=== PATIENT | female | born 1990 | race Caucasian/White ===

== ENCOUNTER 2023-03-08 18:15 | Outpatient (REF) | payer MEDICAID, SELFPAY | END 2023-03-08 18:16 | disposition home or self-care (01) | LOC: HO.HHCLNP 18:15 | PROVIDERS: Visit Provider Internal Medicine | DX: R30.0 Dysuria (principal) | CPT/HCPCS: 87086; 87088; 87186 ==

== ENCOUNTER 2024-06-06 11:44 | Outpatient (REF) | payer MEDICAID, SELFPAY ==
[2024-06-07 04:11] LABS: Syphilis Screen Nonreactive (Nonreactive)
[2024-06-07 04:21] LABS: HBS Num1 14.16 mIU/mL (0-7.99); HBc Num1 0.08 S/CO (0.00-0.79); HIV AB/AG Nonreactive (Nonreactive); HIV Num 1 0.04 S/CO (0.00-0.99); Hepatitis B Core Antibody Nonreactive (Nonreactive); Hepatitis B Surface Antigen Negative (Negative); ~HepC Num1 0.12 S/CO (0.00-0.79); ~Hepatitis B Surface Antibody REACTIVE (Nonreactive); ~Hepatitis C Antibody Nonreactive (Nonreactive)
[2024-06-07 09:39] LABS: HPV 16,18/45 See PAP report
[2024-06-10 19:18] LABS: C. Trachomatis RNA TMA, Throat NOT DETECTED; N. gonorrhoeae RNA TMA, Throat NOT DETECTED
[2024-06-16 23:23] LABS: C. trachomatis RNA TMA Detected (Not Detected); N. gonorrhoeae RNA TMA Not Detected (Not Detected); Trichomonas (NAAT) Not Detected (Not Detected)
== END 2024-06-06 11:45 | disposition home or self-care (01) ==
LOC: HO.HHCL 11:44
PROVIDERS: Visit Provider Advanced Practice Midwife
DX: Z11.3 Encounter for screening for infections with a predominantly sexual mode of transmission (principal)
CPT/HCPCS: 36415; 86704; 86706; 86780; 86803; 87340; 87389; 87491; 87591; 87626; 87661; 88175

== ENCOUNTER 2025-01-31 02:00 | Emergency (ER) | payer MEDICAID, SELFPAY ==
[2025-01-31 02:13] VITALS: BP 134/82; PULSE 74; O2SAT 98; BMI 42.9
--- NOTE | 2025-01-31 02:15 | ED_ITS ---
HPI - Headache General Chief Complaint: General Medical Stated Complaint: HEADACHE/ABD PAIN Time Seen by Provider: 01/31/25 02:07 Source: patient Mode of arrival: ambulatory Limitations: no limitations History of Present Illness ED Provider: HPI Narrative: 34-year-old woman reports longstanding history of headaches since young age, it is bitemporal, usually uses anti-inflammatories or acetaminophen this time has not had improvement of her symptoms, no fevers or chills, no neck stiffness no weakness in upper or lower extremities. No rashes, here with a girlfriend, states she is not Related Data Allergies Allergy/AdvReac Type Severity Reaction Status Date / Time No Known Allergies Allergy Verified 01/31/25 02:18 Review of Systems Constitutional: Constitutional: Reports as per [facility] Social History Social History Smoked in Last 30 Days: Yes Substance Use Type: Marijuana Do you have a plan to hurt others: No Plan Patient : No Physical Exam Vital Signs: Vital Signs: Last Vital Signs Temp 97.2 F 01/31/25 02:19 Pulse 53 01/31/25 02:19 Resp 14 01/31/25 02:19 BP 107/55 L 01/31/25 02:19 Pulse Ox 100 01/31/25 02:19 O2 Del Method Room Air 01/31/25 02:19 BMI result Body Mass Index 42.9 Const: Other: * Gen: ?Appears in some discomfort * HEENT: PERRLA, * Neck: No meningismus * CV: RRR, no obvious murmurs appreciated * Resp: ?No wheezing rales rhonchi no stridor moving air well * MSK: FROM, strength 5/5 all extremities * Skin: Warm, dry, intact, * Neuro: ?Alert and oriented x3, moving upper and lower extremities symmetrically, no obvious facial asymmetry noted Medications Administered Discontinued Medications Generic Name Dose Route Start Last Admin Trade Name Freq PRN Reason Stop Dose Admin Diazepam 2 mg 01/31/25 02:13 01/31/25 02:26 Diazepam 2 Mg Tablet PO 01/31/25 02:14 2 mg ONCE ONE Administration Ketorolac Tromethamine 15 mg 01/31/25 02:13 01/31/25 02:27 Ketorolac Tromethamine 15 Mg/Ml Vial IM 01/31/25 02:14 15 mg ONCE ONE Administration Ondansetron HCl 4 mg 01/31/25 02:13 01/31/25 02:27 Ondansetron Odt 4 Mg Tab.Raphael MCDUFFIEU 01/31/25 02:14 4 mg ONCE ONE Administration Medical Decision Making Medical Decision Making [facility] Narrative: 2:19 AM 01/31/2025 (Dr. Erik Ochoa): Overall well-appearing patient, bitemporal headache, this is chronic recurrent issue, likely tension headache without any red flags to suspect subarachnoid hemorrhage such as sudden onset , no fevers or chills to suspect underlying infectious etiology such as encephalitis, no risk factors to suspect cavernous venous thrombosis such as patient is on control pills 3:26 AM 01/31/2025 (Dr. Erik Ochoa): Re-evaluated, feels better will discharge Differential Diagnosis Differential Diagnoses: The differential diagnosis associated with the presentation includes (Subarachnoid hemorrhage, cavernous venous thrombosis, acute angle closure glaucoma, temporal arteritis, meningitis, migraine headache, tension headache) Admission/Observation Consideration of admission/observation: Escalation of care including admission/observation considered Tests considered The following testing was considered but not selected: CT brain CBC Prescription Management I considered prescription management with: Pain Medication Discharge Plan Discharge Clinical Impression: Headache, tension type, episodic Patient Disposition: Home, Self-Care Additional Instructions: Stay well hydrated, avoid screen time, you can use ibuprofen 400 mg every 6 hours needed for headache, I recommend less smoking marijuana and trying adipose a tincture it will help you with this type of headache, otherwise follow up with the PCP, and make sure you have your vision checked to make sure you do not need glasses Print Language: [place] Islander
[2025-01-31 02:19] VITALS: BP 107/55; PULSE 53; RESP 14; TEMP 36.2; O2SAT 100
--- OUTSIDE RECORDS SUMMARY | 2025-01-31 03:42 | XMS_ITS | Encounter Summary ---
Author Organization [employer] Address [address] [facility] 7t [place] [address] Care Team Providers Care Metal Filer Name Role Phone Jessica Spears PRINTING ROLLER POLISHER Primary Care Provider [phone] Encounter Details Date Type Department Care Team (Late st Contact Info) Description 06/07/2024 Orders Only [facility] [address] [place], [place] [phone] Za Padilla, RN Social History Tobacco Use Types Packs/Day Years Used Date Smoking Tobacco: Every Day Cigarettes Alcohol Use Standard Drinks/Week Comments Never 0 (1 standard drink = 0.6 oz pur e alcohol) Depression Answer Date Recorded Patient Health Questionnaire-9 Score 0 10/04/2022 Housing Stability Answer Date Recorded What is your housing situation today? I do not have housing (Staying with others, in a hotel, in a care home, living outside on the street, on a beach, in a car, or in a park 02/26/[address] you li ve. Do you have problems with any of the following? Mold 02/26/2023 Food Insecurity Answer Date Recorded Within the past 12 months, y ou worried that your food would run out before you got money to buy more: Sometimes True 2022 Within the past 12 months,th e food you bought just didn't last and you didn't have enough money to get more: Sometimes True 03/08/2023 Transportation Answer Date Recorded In the past 12 months, has l ack of transportation kept you from medical appts, meetings, work or from getting things needed for daily living? No 03/08/2023 Utilities Answer Date Recorded In the past 12 months, has t he electric, gas, oil or water company threatened to shut off services in your home? No 03/08/2023 Depression Answer Date Recorded Patient Health Questionnaire-2 Score 0 10/04/2022 Comments No Sex and Gender Information Value Date Recorded Sex Assigned at Female 03/21/2022 10:19 AM EDT Legal Sex Female 10:19 AM EDT Gender Identity Female 03/21/2022 10:19 AM EDT Sexual Orientation Bisexual 03/21/2022 10 :19 AM EDT documented as of this encounter Plan of Treatment Upcoming Encounters Date Type Department Care Team (Late st Contact Info) Description 03/10/2025 10:45 AM EDT Office Visit [facility] [address] [place], [place] [phone] [facility] [address] [place] [address] documented as of this encounter Procedures Procedure Name Priority Date/Time Associated Diagnosis Comments CHLAMYDIA/N. GONORRHOEAE RNA, TMA, THROAT Routine 06/06/2024 11:26 AM EST documented in this encounter Results * Chlamydia/N. Gonorrhoeae RNA, TMA, Throat (06/06/2024 11:26 AM EST) C. Trachomatis RNA TMA, Throat NOT DETECTED [facility] N. gonorrhoeae RNA TMA, Throat NOT DETECTED [facility] Comment:REFERENCE RANGE: NOT DETECTEDMethodology: Helicopter Officer Mediated Amplification (TMA) to detect RNA.The analytical performance characteristics of this assayhave been determined by [employer]. The modificationshave not been cleared or approved by the FDA. This assay hasbeen validated pursuant to the CLIA regulations and is usedfor clinical purposes.For additional information, please refer tohttps://education.[employer]/faq/IAJ180(This link is being provided for informational/educationalpurposes only.)THIS TEST WAS PERFORMED AT:[employer] [id number] [place] [address]MAHYSSERGIO KAY MD,PHD,LIZZY 06/06/2024 11:2 6 AM EST 06/06/2024 4:18 PM EST us Saadia Mendosa CNM LAB MICROBIOLOGY - GENERA L ORDERABLES Final Result [facility] [address] [place] [phone] [phone] documented in this encounter Visit Diagnoses Not on filedocumented in this encounter Additional Health Concerns Assessment Noted Time PHQ-9 Depression Total Score: 0 10/05/19 23 3:44 PM EDT documented as of this encounter Care Teams Metal Filer Relationship Specialty Start Date End Date Jessica Spears FNP [address] [place] [phone] PCP - General Family Medicine 11/01/21 documented as of this encounter
--- OUTSIDE RECORDS SUMMARY | 2025-01-31 03:42 | XMS_ITS | Clinical Summary ---
Author Organization [employer] Address [address] [facility] 7t [place] [address] Care Team Providers Care Diploma Maker Name Role Phone Jessica Spears FIRER DIESEL LOCOMOTIVE Primary Care Provider [phone] Allergies No known active allergies Medications senna-docusate (Gina-Colace) 4.3-25 mg half tablet Take 1 tablet by mouth every 12 (twelve) hours. 6 Active nicotine (Nicoderm CQ) 7 MG/24HR patch Place 1 patch on the skin at bed time. 0 Active nicotine polacrilex (Nicorette) 2 MG gum Take by mouth every 2 (two) hours. 0 Active nitrofurantoin, macrocrystal-mo nohydrate, (Macrobid) 100 MG capsule Take 1 capsule by mouth every 12 (twelve) hours. 0 Active omeprazole (PriLOSEC) [address] capsule take 1 capsule by oral route every day before breakfast 6 Active polyethylene glycol, PEG, 3350 (MiraLax) 17 GM/SCOOP powder take (17G) by oral route every day mixed with 8 oz. water, juice, soda, coffee or tea 6 Active rizatriptan (Maxalt) 5 MG tablet Take 1 tablet by mouth. 0 Active nicotine (Nicoderm CQ) 21 MG/24HR patch Place 1 patch on the skin at bed time. 0 Active nicotine (Nicoderm CQ) 14 MG/24HR patch Place 1 patch on the skin at bed time. 0 Active naproxen (Naprosyn) 500 MG tablet Take 1 tablet by mouth every 12 (twelve) hours. 0 Active metroNIDAZOLE (Flagyl) 500 MG tablet take 1 tablet by oral route every 12 hours for seven days 0 Active famotidine (Pepcid) 20 MG tablet take 1 tablet by oral route 2 times every day before meals 0 Active ciclopirox (Penlac) 8 % solution Apply topically at bed time. 0 Active cholecalciferol (Vitamin D-3) 50 MCG (1999) capsule Take 1 capsule by mouth Once per day. 6 Active doxycycline (Monodox) 100 MG capsule One twice a day for 7 days. Take with at least 8 ounces (large glass) of water, do not lie down for 30 minutes after 14 capsule 5 Active Active Problems Problem Noted Date Diagnosed Date Severe obesity 06/03/2024 Migraine without aura, not refractory 10/04/2022 Numbness and tingling in right hand 09/05/2022 Anxiety 07/20/2015 Slow transit constipation 07/20/2015 Immunizations Immunization Administration Dates Next Due DTP 09/18/1994, 2,1990,1990,1990 Hep B, Unspecified 07/10/1996,01/19/1996 HiB, unspecified 12/20/1991, 1,1990,1990 Influenza Injectable Quadriv alant Preservative Free IIV4 MDCK 02/21/2019 Influenza injectable quadriv alent preservative free 02/22/2017,07/20/2015 MMR 09/18/1994,09/19/1991 OPV, Trivalent 09/18/1994, 1,1990,1990 Tdap 03/09/2017,07/20/2015 Family History Medical History Relation Name Comments Cancer Maternal Grandmother unknown type Cancer Mother possibly uterin e or ovarian, had hyst Relation Name Status Comments Maternal Grandmother Mother Social History Tobacco Use Types Packs/Day Years Used Date Smoking Tobacco: Every Day Cigarettes Tobacco Cessation:Ready to Q uit: Not Asked; Counseling Given: Not Answered Alcohol Use Standard Drinks/Week Comments Never 0 (1 standard drink = 0.6 oz pur e alcohol) Depression Answer Date Recorded Patient Health Questionnaire-9 Score 0 10/04/2022 Housing Stability Answer Date Recorded What is your housing situation today? I do not have housing (Staying with others, in a hotel, in a prison, living outside on the street, on a [...] Orientation Bisexual 03/21/2022 10 :19 AM EDT Last Filed Vital Signs Vital Sign Reading Time Taken Comments Blood Pressure 124/62 06/06/2024 11:01 AM EST Pulse 67 06/06/2024 11:01 AM EST Temperature 36.6 C (97.8 F) 06/06/2024 11:01 AM EST Respiratory Rate 20 06/06/2024 11:0 1 AM EST Oxygen Saturation 98% 06/06/2024 11: 01 AM EST Inhaled Oxygen Concentration - - Weight 99.7 kg (219 lb 12.8 oz) 025 11:01 AM EST Height 154.9 cm (5' 1 ) 06/06/2024 11:0 1 AM EST Body Mass Index 41.53 06/06/2024 11:01 AM EST Plan of Treatment Upcoming Encounters Date Type Department Care Team (Late st Contact Info) Description 03/10/2025 10:45 AM EDT Office Visit [facility] [address] [place] [address] [place], Jessica, FIRER DIESEL LOCOMOTIVE [address] [place], [place] [phone] Health Maintenance Due Date Last Done Comments Lipid Panel 1990 Disability Screening 1990 Hepatitis B Vaccines (3 of 3 - 3-dose series) 09/04/1996 07/10/1996, 01/19/1996 Alcohol/Substance Use Screening 2002 HPV Vaccines (1 - 3-dose series) 2005 Pneumococcal Vaccine: Pediatrics (0 to 5 Years) and At-Risk Patients (6 to 49) Years (1 of 2 - PCV) 2009 Depression Screening 10/05/2023 10/04/2022, 10/05/19 23 SDOH Screening 10/26/2023 10/25/2022 COVID-19 Vaccine ( - season) 2025 Influenza Vaccine (#1) 2025 9, 02/22/2017, 07/20/2015, Additional history exists Family Planning (PISQ) 06/06/2025 06/06/2024 Tobacco Screening 06/06/2025 06/06/2024 DTaP/Tdap/Td Vaccines (8 - Td or Tdap) 03/09/2027 03/09/2017, 07/20/2015, 09/18/1994, Additional history exists Cervical Cancer Screening 06/06/2029 HPV/Cotest 06/06/2029 06/06/2024 Pap Smear 06/06/2029 06/06/2024 Zoster Vaccines (1 of 2) 2040 RSV Patients and Patients Aged 60 years or older (1 - 1-dose 75+ series) 2065 HIB Vaccines Completed 12/20/1991, 12/22, 1990, Additional history exists IPV Vaccines Completed 09/18/1994, 07/3 05/1990, 1990, Additional history exists HIV Screening Completed 06/06/2024 Hepatitis C Screening Completed 06/06/2024 Hepatitis A Vaccines Aged Out No long er eligible based on patient's age to complete this topic Meningococcal B Vaccine Aged Out No l onger eligible based on patient's age to complete this topic Meningococcal Vaccine Aged Out No joshua gregory eligible based on patient's age to complete this topic RSV under 20 months Aged Out No longe r eligible based on patient's age to complete this topic Rotavirus Vaccines Aged Out No longer eligible based on patient's age to complete this topic Procedures Procedure Name Priority Date/Time Associated Diagnosis Comments HEPATITIS C AB W/REFL TO HCV RNA, QN, PCR Routine 06/06/2024 11:46 AM EST Screening examination for venereal disease HIV 1/2 ANTIGEN/ANTIBODY, FOURTH GENERATION W/RFL Routine 06/06/2024 11:46 AM EST Screening examination for venereal disease PAP SMEAR Routine 06/06/2024 11:25 AM EST Cervical cancer screening HPV MRNA E6/E7 REFLEX TO HPV 16, 18/45 Routine 06/06/2024 12:00 AM EST from Last 3 Months or Most Recently Relevant to Health Maintenance Results * Hepatitis C Antibody with Reflex to HCV, RNA, Quantitative, Real-Time PCR (06/06/2024 11:46 AM EST) Hepatitis C Antibody Nonreactive Nonreactive [facility] Comment:Antibodies to HCV no t detected; does not exclude early acuteHCV infection. Blood Venous blood specimen / Unknown 06/06/2024 11:46 AM EST 06/06/2024 1:03 PM EST us Saadia Birmingham [facility] LAB BLOOD ORDERABLES Agnes l Result [facility] [address] [place] [address] [phone] * HIV-1/2 Antigen and Antibodies, Fourth Generation, with Reflexes (06/06/2024 11:46 AM EST) HIV AB/AG Nonreactive Nonreactive [facility] Comment:HIV-1 p24 Ag and/or HIV-1/HIV-2 Ab not detected.A test result that is nonreactive does not exclude thepossibility of exposure to or infection with HIV-1 and/orHIV-2. Nonreactive results in this assay for individualswith prior exposure to HIV-1 and/or HIV-2 may be due toantigen and antibody levels that are below the limit ofdetection of this assay.[employer] HIV Ag/Ab Combo assay result andsupplemental assay results should be interpreted inconjunction with the patient's clinical presentation,history and other laboratory results. If the results areinconsistent with clinical evidence, additional testing issuggested to confirm the result. Blood Venous blood specimen / Unknown 06/06/2024 11:46 AM EST 06/06/2024 1:03 PM EST us Saadia Birmingham [facility] BLOOD ORDERABLES Agnes l Result [facility] [address] [place] [phone] * Pap Smear (06/06/2024 11:25 AM EST) Swab Cervix uteri structure / Unknown 06/06/2024 11:25 AM EST 06/07/2024 8:45 AM EST Narrative [facility] - 06/14/2024 10:29 AM EST ----- ------- Name: Layla Hensley Age/Sex: 34/F : 1990 Unit#: [id number] Attend Dr: SAADIA BIRMINGHAM Re06/06/24 Status: DEP [facility]ch[facility] ----- ------- SPEC : [id number] RECD: 06/07/24 STATUS: MACKENZIE BERMAN NUM: [id number] JOURDAN: 06/06/24-112[address] [facility] [address]: SAADIA B[place]MINGHAM ENTERED: 06/07/24 SP TYPE: Pap Smr OTHR DR: ORDERED: Pap Smear Interpretation Satisfactory for evaluation. Negative for intraepithelial lesion or malignancy. No endocervical cells seen. Coccobacilli consistent with shift in vaginal kayla. HPV High Risk: Negative HPV Genotyping 16: Negative HPV Genotyping 18: Negative Clinical Information LMP: Unknown date Previous PAP test: Unknown date/findings Material Received ThinPrep-Cervical ----- ------- Signed (signature on file) CARTER Noriega (ASC) 06/14/24 1029 ----- ------- END OF REPORT Saadia Birmingham CNM LAB CYTOLOGY ORDERABLES F inal Result [facility] [address] [place] [phone] * HPV mRNA E6/E7 w/Reflex to HPV Genotypes 16, 18/45 (06/06/2024 12:00 AM EST) Historical Provider MD LAB CYTOLOGY ORDERABLES F inal Result from Last 3 Months or Most Recently Relevant to Health Maintenance Insurance [employer] C3 Care Teams Diploma Maker Relationship Specialty Start Date End Date Jessica Spears FNP [address] [place] [address] PCP - General Family Medicine 11/01/21
--- OUTSIDE RECORDS SUMMARY | 2025-01-31 03:42 | XMS_ITS | Encounter Summary ---
Author Organization [employer] Address [address] [facility] 7t [place] [address] Care Team Providers Care Yoker Name Role Phone Jessica Spears CHEMICAL LABORATORY TECHNICIAN Primary Care Provider [phone] Encounter Details Date Type Department Care Team (Late st Contact Info) Description 09/18/2024 Orders Only [facility] [address] [place], [place] [phone] Sydnie Sapp Social History Tobacco Use Types Packs/Day Years [...] Description 03/10/2025 10:45 AM EDT Office Visit [facility] [address] [place], [place] [phone] Jessica Spears FNP [address] [place] [address] documented as of this encounter Procedures Procedure Name Priority Date/Time Associated Diagnosis Comments HPV MRNA E6/E7 REFLEX TO HPV 16, 18/45 Routine 06/06/2024 12:00 AM EST documented in this encounter Results * HPV mRNA E6/E7 w/Reflex to HPV Genotypes 16, 18/45 (06/06/2024 12:00 AM EST) us Historical Provider LAB CYTOLOGY ORDERABLES F inal Result documented in this encounter Visit Diagnoses Not on filedocumented in this encounter Additional Health Concerns Assessment Noted Time PHQ-9 Depression Total Score: 0 10/05/19 23 3:44 PM EDT documented as of this encounter Care Teams Yoker Relationship Specialty Start Date End Date Jessica Spears FNP [address] [place] [address] PCP - General Family Medicine 11/01/21 documented as of this encounter
--- NOTE | 2025-01-31 03:51 | PC.NURSE ---
pt left ED prior to going over DC with RN. Discharge instructions given by provider
== END 2025-01-31 03:52 | disposition home or self-care (01) ==
PROVIDERS: Emergency Provider Emergency Medicine
DX: R51.9 Headache, unspecified (principal); R10.2 Pelvic and perineal pain
CPT/HCPCS: 96372; 99284; J1885

== ENCOUNTER 2025-02-13 21:00 | Emergency (ER) | payer SELFPAY ==
[2025-02-13 21:05] VITALS: BP 118/72; PULSE 78; O2SAT 98
[2025-02-13 21:08] VITALS: BP 97/49; PULSE 66; RESP 18; TEMP 36.7; O2SAT 98; BMI 37.8
--- OUTSIDE RECORDS SUMMARY | 2025-02-13 22:44 | XMS_ITS | Encounter Summary ---
Author Organization [employer] Address [address] [facility] 7t [place] [address] Care Team Providers Care Console Assembler Name Role Phone Jessica Spears NEWSPAPER PHOTO EDITOR Primary Care Provider [phone] Encounter Details Date Type Department Care Team (Late st Contact Info) Description 09/18/2024 Orders Only [facility] P[facility]S [address] [place], [place] [phone] Sydnie Sapp Social History Tobacco Use Types [...] with others, in a hotel, in a penitentiary, living outside on the street, on a [...] Description 03/10/2025 10:45 AM EDT Office Visit [facility] [address] [place], [place] [phone] Jessica Spears FNP [address] [place] [address] documented as of this encounter Procedures Procedure [...] documented as of this encounter Care Teams Console Assembler Relationship Specialty Start Date End Date Jessica Spears FNP [address] [place] [address] PCP - General Family Medicine 11/01/21 documented as of this encounter
--- OUTSIDE RECORDS SUMMARY | 2025-02-13 22:44 | XMS_ITS | Encounter Summary ---
Author Organization [employer] Address [address] [facility] [address] [place] [address] Care Team Providers Care Operator Name Role Phone Jessica Spears WELDER/FITTER Primary Care Provider [phone] Encounter Details Date Type Department Care Team (Late st Contact Info) Description 06/07/2024 Orders Only [facility] [address] [place], [place] [phone] Za Padilla, RN Social History Tobacco Use [...] Description 03/10/2025 10:45 AM EDT Office Visit [facility] [address] [place], [place] [phone] [facility], [facility] [address] [place] [address] documented as of this encounter Procedures Procedure Name Priority Date/Time Associated Diagnosis Comments CHLAMYDIA/N. GONORRHOEAE RNA, TMA, THROAT Routine 06/06/2024 11:26 AM EST documented in this encounter Results * Chlamydia/N. Gonorrhoeae RNA, TMA, Throat (06/06/2024 11:26 AM EST) C. Trachomatis RNA TMA, Throat NOT DETECTED [facility] N. gonorrhoeae RNA TMA, Throat NOT DETECTED [facility] Comment:REFERENCE RANGE: NOT DETECTEDMethodology: Balancing Machine Operator Mediated Amplification (TMA) to detect RNA.The analytical performance characteristics of this assayhave been determined by [employer]. The modificationshave not been cleared or approved by the FDA. This assay hasbeen validated pursuant to the CLIA regulations and is usedfor clinical purposes.For additional information, please refer tohttps://education.[employer]/faq/ZQQ413(This link is being provided for informational/educationalpurposes only.)THIS TEST WAS PERFORMED AT:[employer] [id number] [place] [address]MVDITSERGIO KAY MD,PHD,LIZZY 06/06/2024 11:2 6 AM EST 06/06/2024 4:18 PM EST us Saadia Mendosa CNM LAB MICROBIOLOGY - GENERA L ORDERABLES Final Result [facility] [address] [place] [phone] [phone] documented in this encounter Visit Diagnoses Not on filedocumented in this encounter Additional Health Concerns Assessment Noted Time PHQ-9 Depression Total Score: 0 10/05/19 23 3:44 PM EDT documented as of this encounter Care Teams Operator Relationship Specialty Start Date End Date Jessica Spears FNP [address] [place] [phone] PCP - General Family Medicine 11/01/21 documented as of this encounter
--- OUTSIDE RECORDS SUMMARY | 2025-02-13 22:44 | XMS_ITS | Clinical Summary ---
Author Organization [employer] Address [address] [facility] 7t [place] [address] Care Team Providers Care Mold Capper Name Role Phone Jessica Spears SKILLS INSTRUCTOR Primary Care Provider [phone] Allergies No known active allergies Medications senna-docusate [...] Description 03/10/2025 10:45 AM EDT Office Visit [facility] [address] [place] [address] [place], Jessica, SKILLS INSTRUCTOR [address] [place], [place] [phone] Health Maintenance Due Date Last Done Comments [...] AM EST) Hepatitis C Antibody Nonreactive Nonreactive [facility] Comment:Antibodies to HCV no t detected; does not exclude early acuteHCV infection. Blood Venous blood specimen / Unknown 06/06/2024 11:46 AM EST 06/06/2024 1:03 PM EST us Saadia Birmingham [facility] LAB BLOOD ORDERABLES Agnes l Result [facility] [address] [place] [address] [phone] * HIV-1/2 Antigen and Antibodies, Fourth Generation, with Reflexes (06/06/2024 11:46 AM EST) HIV AB/AG Nonreactive Nonreactive [facility] Comment:HIV-1 p24 Ag and/or HIV-1/HIV-2 Ab not detected.A test result that is nonreactive does not exclude thepossibility of exposure to or infection with HIV-1 and/orHIV-2. Nonreactive results in this assay for individualswith prior exposure to HIV-1 and/or HIV-2 may be due toantigen and antibody levels that are below the limit ofdetection of this assay.The [employer] HIV Ag/Ab Combo assay result andsupplemental assay results should be interpreted inconjunction with the patient's clinical presentation,history and other laboratory results. If the results areinconsistent with clinical evidence, additional testing issuggested to confirm the result. Blood Venous blood specimen / Unknown 06/06/2024 11:46 AM EST 06/06/2024 1:03 PM EST us Saadia Birmingham [facility] LAB BLOOD ORDERABLES Agnes l Result [facility] [address] [place] [phone] * Pap Smear (06/06/2024 11:25 AM EST) Swab Cervix uteri structure / Unknown 06/06/2024 11:25 AM EST 06/07/2024 8:45 AM EST Narrative [facility] - 06/14/2024 10:29 AM EST ----- ------- Name: Layla Hensley Age/Sex: 34/F : 1990 Unit#: [id number] Attend Dr: SAADIA BIRMINGHAM Re06/06/24 Status: DEP [facility] Disch: ----- ------- SPEC : [id number] RECD: 06/07/24 STATUS: MACKENZIE BERMAN NUM: [id number] JOURDAN: 06/06/24-[address] [facility] [address]: SAADIA BIRMINGHAM ENTERED: 06/07/24 [...] CNM LAB CYTOLOGY ORDERABLES F inal Result [facility] [address] [place] [address] [phone] * HPV mRNA E6/E7 w/Reflex to HPV Genotypes 16, 18/45 (06/06/2024 12:00 AM EST) Historical Provider MD LAB CYTOLOGY ORDERABLES F inal Result from Last 3 Months or Most Recently Relevant to Health Maintenance Insurance [employer] Care Teams Mold Capper Relationship Specialty Start Date End Date Jessica Spears FNP [address] [place] [address] PCP - General Family Medicine 11/01/21
--- NOTE | 2025-02-13 23:19 | ED_ITS ---
HPI - General Adult General Chief complaint: Dental/Oral Stated complaint: toothache, unable to eat difficultly speaking Time Seen by Provider: 02/13/25 23:19 Source: patient Mode of arrival: ambulatory Limitations: no limitations History of Present Illness ED Provider: Dr. Lofton [facility] narrative: 34-year-old female presented hospital today for right lower molar dental pain. Patient is complaining of pain. She does have appointment with the dentist tomorrow. She thinks it might be infected. Related Data Previous Rx's ?Medication ?Instructions ?Recorded oxycodone 5 mg tablet 5 mg PO Q8H PRN pain #14 tab s 02/13/25 penicillin V potassium 500 mg 500 mg PO TID 7 days #21 tabs 02/13/25 tablet Allergies Allergy/AdvReac Type Severity Reaction Status Date / Time No Known Allergies Allergy Verified 02/13/25 21:10 Review of Systems 2 Review of Systems: Pertinent review of systems as mentioned in HPI. All other system otherwise negative. PMFSH Past Medical History [facility] Narrative: Medical history as mentioned in [facility] Social History Social History Substance Use Type: Marijuana Advance Directives: No Advance Directives Information Provided: No Do you have a plan to hurt others: No Plan Physical Exam ED Exam Exam: General: Pleasant, no distress, interacting appropriately Head: Normacephalic, atraumatic ENT: oral mucosa moist, neck supple, no tracheal deviation, patient has some decayed teeth in the right lower molar. It was some swelling of the gingiva Skin: Warm and dry Psychiatric: Appropriate mood and thoughts Vital Signs: Vital Signs - 24 hr 02/13/25 21:08 02/13/25 23:32 Temperature 98.1 F 98.1 F Pulse Rate 66 66 Respiratory Rate 18 18 Blood Pressure 97/49 L 97/49 L Pulse Oximetry 98 98 Oxygen Delivery Method Room Air Room Air BMI result Body Mass Index 37.8 Medical Decision Making Medical Decision Making [facility] Narrative: 34-year-old female presented hospital presented hospital today for right lower molar dental pain. I suspect patient has dental infection. Patient does have a dentist appointment tomorrow. We will plan to discharge patient with a short course of oxycodone and Pen-VK for coverage. Patient will be discharged with follow up with her dentist. Differential Diagnosis Differential Diagnoses: The differential diagnosis associated with the presentation includes Dental abscess, tooth pain, toothache, gingivitis Discharge Plan Discharge Clinical Impression: Dental caries Patient Disposition: Home, Self-Care Additional Instructions: Follow up with your primary care doctor. Prescriptions: New oxycodone 5 mg tablet 5 mg PO Q8H PRN (Reason: pain) Qty: 14 0RF Rx Instructions: Partial Fill upon patient request. penicillin V potassium 500 mg tablet 500 mg PO TID 7 Days Qty: 21 0RF Interventions: ED Discharge Assessment Last Done: 02/13/25 23:32 Discharge Date/Time: 02/13/25 23:33 Print Language: Persian
[2025-02-13 23:32] VITALS: BP 97/49; PULSE 66; RESP 18; TEMP 36.7; O2SAT 98
== END 2025-02-13 23:33 | disposition home or self-care (01) ==
PROVIDERS: Emergency Provider Student in an Organized Health Care Education/Training Program
DX: K02.9 Dental caries, unspecified (principal); K08.89 Other specified disorders of teeth and supporting structures
CPT/HCPCS: 99282; 99283

== ENCOUNTER 2025-04-01 22:52 | Emergency (ER) | payer MEDICAID, SELFPAY ==
[2025-04-01 23:05] VITALS: BP 109/59; PULSE 79; RESP 16; TEMP 36.6; O2SAT 99; BMI 43.1
[2025-04-01 23:27] LABS: MANUAL DIFF FLAG NO
[2025-04-01 23:28] LABS: Hematocrit 36.1 % (37.0-47.0); Hemoglobin 11.9 g/dl (12.0-16.0); Imm Gran Abs Auto 0.03 X10*3/uL (0.00-0.03); Imm Gran Pct Auto 0.4 % (0.0-0.4); Lymphocytes Absolute Auto 2.9 X10*3/uL (1.2-4.9); Mean Corpuscular HGB Conc 33.0 g/dl (31.0-35.0); Mean Corpuscular Hemoglobin 29.2 pg (27.0-33.0); Mean Corpuscular Volume 88.7 fL (80.0-98.0); NRBC Abs Auto 0.000 X10*3/uL (0.0-0.012); NRBC Pct Auto 0.0 /100WBC (0.0-0.2); Platelet Count 256 X10*3/uL (160-400); Red Blood Count 4.07 X10*6/uL (4.20-5.50); White Blood Count 7.2 X10*3/uL (4.8-10.8)
[2025-04-01 23:31] LABS: UPreg QC Valid YES
--- OUTSIDE RECORDS SUMMARY | 2025-04-01 23:31 | XMS_ITS | Clinical Summary ---
Author Organization [employer] Address [address] [facility] 7t [place] [address] Care Team Providers Care Chiller Operator Name Role Phone [facility] Primary Care Provider [phone] Allergies No known active allergies Medications senna-docusate [...] Problem Noted Date Diagnosed Date Severe obesity (CMS/HCC) 06/03/2024 Migraine without aura, not refractory 10/04/2022 Numbness and tingling in right hand 09/05/2022 Anxiety 07/20/2015 Slow transit constipation 07/20/2015 Encounters Date Type Department Care Team Description 04/01/2025 Orders Only GENERIC EXTERNAL DATA DEPARTMENT Provider, Generic External Data 03/07/2025 Telephone [facility] [address] [place], [place] [phone] Jessica Spears FNP chart prep 03/03/2025 Patient Outreach [facility] [address] [place], [place] [phone] Jessica Spears FNP Pre-visit Planning ([facility] unable to reach ) from Last 3 Months Immunizations Immunization Administration Dates Next Due DTP 09/18/1994, 2,1990,1990,1990 Hep B, Unspecified 07/10/1996,01/19/1996 HiB, unspecified 12/20/1991, 1,1990,1990 Influenza Injectable Quadriv alant Preservative Free IIV4 MDCK 02/21/2019 Influenza injectable quadriv alent preservative free 02/22/2017,07/20/2015 Influenza, IIV3, injectable 02/01/2011 MMR 09/18/1994,09/19/1991 OPV, Trivalent 09/18/1994, 1,1990,1990 Tdap [...] with others, in a hotel, in a snf, living outside on the street, on a [...] t he electric, gas, oil or water [employer] threatened to shut off services in your [...] Care Team (Late st Contact Info) Description 04/28/2025 10:45 AM EST Office Visit [facility] [address] [place] [address] [facility] [address] [place], [place] [phone] Health Maintenance Due Date Last Done Comments [...] SDOH Screening 10/26/2023 10/25/2022 COVID-19 Vaccine ( season) 2025 Influenza Vaccine (#1) 2025 9, [...] Additional history exists IPV Vaccines Completed 09/18/1994, 11/21, 1990, Additional history exists HIV Screening Completed [...] Procedure Name Priority Date/Time Associated Diagnosis Comments CBC WITH AUTO DIFFERENTIAL Routine 04/01/2025 11:17 PM EST HEPATITIS C AB W/REFL TO HCV RNA, [...] Recently Relevant to Health Maintenance Results * (ABNORMAL) CBC auto differential (04/01/2025 11:17 PM EST) White Blood Count 7.2 4.8 - 10.8 X10*3/uL [facility] Red Blood Count 4.07(L) 4.20 - 5.50 X10*6/uL [facility] Hemoglobin 11.9(L) 12.0 - 16.0 g/dl [facility] Hematocrit 36.1(L) 37.0 - 47.0 % [facility] Mean Corpuscular Volume 88.7 80.0 - 98.0 fL [facility] Mean Corpuscular Hemoglobin 29.2 27.0 - 33.0 pg [facility] Mean Corpuscular HGB Conc 33.0 31.0 - 35.0 g/dl [facility] Red Cell Distribution Width 12.2 11.0 - 16.0 % [facility] Platelet Count 256 160 - 400 X10*3/uL [facility] Mean Platelet Volume 8.7(L) 9.4 - 12.3 fL [facility] Neutrophils Percent Auto 47.5 45 - 73 % [facility] Imm Gran Pct Auto 0.4 0.0 - 0.4 % [facility] Lymphocytes Percent Auto 39.9 20 - 40 % [facility] Monocytes Percent Auto 9.4 2 - 11 % [facility] Eosinophils Percent Auto 2.5 0 - 4 % [facility] Basophils Percent Auto 0.3 0 - 2 % [facility] NRBC Pct Auto 0.0 0.0 - 0.2 /100WBC [facility] Neutrophils Absolute Auto 3.4 2.0 - 8.3 x10*3/uL [facility] Imm Gran Abs Auto 0.03 0.00 - 0.03 X10*3/uL [facility] Lymphocytes Absolute Auto 2.9 1.2 - 4.9 X10*3/uL [facility] Monocytes Absolute Auto 0.7 0.1 - 1.2 X10*3/uL [facility] Eosinophils Absolute Auto 0.2 0.0 - 0.4 X10*3/uL [facility] Basophils Absolute Auto 0.0 0.0 - 0.2 X10*3/uL [facility] NRBC Abs Auto 0.000 0.0 - 0.012 X10*3/uL [facility] 04/01/2025 11:1 7 PM EST 04/01/2025 11:25 PM EST Generic External Data Provider LAB BLOOD ORDERAB LES Final Result Performing Organization Address [facility]/ZIP Co de Phone Number [facility] [address] [place] [address] [phone] * Hepatitis C Antibody with Reflex to HCV, RNA, Quantitative, Real-Time PCR (06/06/2024 11:46 AM EST) Hepatitis C Antibody Nonreactive Nonreactive [facility] Comment:Antibodies to HCV no t detected; does not exclude early acuteHCV infection. Blood Venous blood specimen / Unknown 06/06/2024 11:46 AM EST 06/06/2024 1:03 PM EST Saadia Birmingham [facility] LAB BLOOD ORDERABLES Agnes l Result Performing Organization Address [facility]/ZIP Co de Phone Number [facility] [address] [place] [address] [phone] * HIV-1/2 Antigen and Antibodies, Fourth Generation, with Reflexes (06/06/2024 11:46 AM EST) HIV AB/AG Nonreactive Nonreactive [facility] Comment:HIV-1 p24 Ag and/or HIV-1/HIV-2 Ab not detected.A test result that is nonreactive does not exclude thepossibility of exposure to or infection with HIV-1 and/orHIV-2. Nonreactive results in this assay for individualswith prior exposure to HIV-1 and/or HIV-2 may be due toantigen and antibody levels that are below the limit ofdetection of this assay.The [employer] HIV Ag/Ab Combo assay result andsupplemental assay results should be interpreted inconjunction with the patient's clinical presentation,history and other laboratory results. If the results areinconsistent with clinical evidence, additional testing issuggested to confirm the result. Blood Venous blood specimen / Unknown 06/06/2024 11:46 AM EST 06/06/2024 1:03 PM EST Saadia Birmingham CNM LAB BLOOD ORDERABLES Agnes gleason Result [facility] [address] [place] [phone] * Pap Smear (06/06/2024 11:25 AM EST) Swab Cervix uteri structure / Unknown 06/06/2024 11:25 AM EST 06/07/2024 8:45 AM EST Narrative [facility] - 06/14/2024 10:29 AM EST ----- ------- Name: Layla Hensley Age/Sex: 34/F : 1990 Unit#: [id number] Attend Dr: SAADIA BIRMINGHAM CNM Re06/06/24 Status: DEP REF Location: [facility] Disch: ----- ------- SPEC : [id number] RECD: 06/07/240845 STATUS: MACKENZIE BERMAN NUM: [id number] JOURDAN: 06/06/24-1125 [facility] DR: SAADIA BIRMINGHAM CNM ENTERED: 06/07/24 SP TYPE: Pap Smr DADA ROLLE: ORDERED: Pap Smear Interpretation Satisfactory for evaluation. Negative for intraepithelial lesion or malignancy. No endocervical cells seen. Coccobacilli consistent with shift in vaginal kayla. HPV High Risk: Negative HPV Genotyping 16: Negative HPV Genotyping 18: Negative Clinical Information LMP: Unknown date Previous PAP test: Unknown date/findings Material Received ThinPrep-Cervical ----- ------- Signed (signature on file) CARTER Noriega (ASCP) 06/14/24 1029 ----- ------- END OF REPORT Saadia Birmingham CNM LAB CYTOLOGY ORDERABLES F inal Result [facility] [address] [place] [phone] * HPV mRNA E6/E7 w/Reflex to HPV Genotypes 16, 18/45 (06/06/2024 12:00 AM EST) Historical Provider LAB CYTOLOGY ORDERABLES F inal Result from Last 3 Months or Most Recently Relevant to Health Maintenance Care Teams Chiller Operator Relationship Specialty Start Date End Date RichmondJessica parker FNP [address] [place] [phone] PCP - General Family Medicine 11/01/21
--- OUTSIDE RECORDS SUMMARY | 2025-04-01 23:31 | XMS_ITS | Encounter Summary ---
Author Organization [employer] Address [address] [facility] [address] 7t [place] [address] Care Team Providers Care Webmaster Name Role Phone [facility] Primary Care Provider [phone] Encounter Details Date Type Department Care Team (Late st Contact Info) Description 06/07/2024 Orders Only [facility] [address] [place] [address] Za Padilla RN Social History Tobacco Use Types Packs/Day [...] with others, in a hotel, in a jail, living outside on the street, on a [...] the past 12 months, has t he [employer], [employer], oil or water [employer] threatened to shut off services in your [...] Description 04/28/2025 10:45 AM EST Office Visit [facility] [address] [place], [place] [phone] [facility], [facility] [address] [place] [address] documented as of this encounter Procedures Procedure Name Priority Date/Time Associated Diagnosis Comments CHLAMYDIA/N. GONORRHOEAE RNA, TMA, THROAT Routine 06/06/2024 11:26 AM EST documented in this encounter Results * Chlamydia/N. Gonorrhoeae RNA, TMA, Throat (06/06/2024 11:26 AM EST) C. Trachomatis RNA TMA, Throat NOT DETECTED [facility] N. gonorrhoeae RNA TMA, Throat NOT DETECTED [facility] Comment:REFERENCE RANGE: NOT DETECTEDMethodology: Motor[employer] Mediated Amplification (TMA) to detect RNA.The analytical performance characteristics of this assayhave been determined by [employer]. The modificationshave not been cleared or approved by the FDA. This assay hasbeen validated pursuant to the CLIA regulations and is usedfor clinical purposes.For additional information, please refer tohttps://education.[employer]/faq/QRS238(This link is being provided for informational/educationalpurposes only.)THIS TEST WAS PERFORMED AT:[employer] [id number] [place] [id number] KAY MD,PHD,LIZZY 06/06/2024 11:2 6 AM EST 06/06/2024 4:18 PM EST us Saadia Mendosa CNM LAB MICROBIOLOGY - GENERA L ORDERABLES Final Result [facility] [address] [place] [phone] documented in this encounter Visit Diagnoses Not on filedocumented in this encounter Additional Health Concerns Assessment Noted Time PHQ-9 Depression Total Score: 0 10/05/19 23 3:44 PM EDT documented as of this encounter Care Teams Webmaster Relationship Specialty Start Date End Date Jessica Spears FNP [address] [place] [phone] PCP - General Family Medicine 11/01/21 documented as of this encounter
--- OUTSIDE RECORDS SUMMARY | 2025-04-01 23:31 | XMS_ITS | Encounter Summary ---
Author Organization [employer] Address [address] [facility] 7t [place] [address] Care Team Providers Care Concrete Fence Builder Name Role Phone [facility] Primary Care Provider [phone] Encounter Details Date Type Department Care Team (Late st Contact Info) Description 04/01/2025 Orders Only GENERIC EXTERNAL DATA DEPARTMENT Provider, Generic External Data Social History Tobacco Use Types Packs/Day Years [...] with others, in a hotel, in a correction, living outside on the street, on a [...] Description 04/28/2025 10:45 AM EST Office Visit [facility] [address] [place] [address] Jack[place], [place], [facility] [address] [place] [address] documented as of this encounter Procedures Procedure Name Priority Date/Time Associated Diagnosis Comments CBC WITH AUTO DIFFERENTIAL Routine 04/01/2025 11:17 PM EST documented in this encounter Results * (ABNORMAL) CBC auto differential (04/01/2025 11:17 PM EST) White Blood Count 7.2 4.8 - 10.8 X10*3/uL [facility] Red Blood Count 4.07(L) 4.20 - 5.50 X10*6/uL [facility] Hemoglobin 11.9(L) 12.0 - 16.0 g/dl [facility] Hematocrit 36.1(L) 37.0 - 47.0 % [facility] Mean Corpuscular Volume 88.7 80.0 - 98.0 fL [facility] Mean Corpuscular Hemoglobin 29.2 27.0 - 33.0 pg [facility] Mean Corpuscular HGB Conc 33.0 31.0 - 35.0 g/dl [facility] Red Cell Distribution Width 12.2 11.0 - 16.0 % [facility] Platelet Count 256 160 - 400 X10*3/uL [facility] Mean Platelet Volume 8.7(L) 9.4 - 12.3 fL [facility] Neutrophils Percent Auto 47.5 45 - 73 % [facility] Imm Gran Pct Auto 0.4 0.0 - 0.4 % [facility] Lymphocytes Percent Auto 39.9 20 - 40 % [facility] Monocytes Percent Auto 9.4 2 - 11 % [facility] Eosinophils Percent Auto 2.5 0 - 4 % [facility] Basophils Percent Auto 0.3 0 - 2 % [facility] NRBC Pct Auto 0.0 0.0 - 0.2 /100WBC [facility] Neutrophils Absolute Auto 3.4 2.0 - 8.3 x10*3/uL [facility] Imm Gran Abs Auto 0.03 0.00 - 0.03 X10*3/uL [facility] Lymphocytes Absolute Auto 2.9 1.2 - 4.9 X10*3/uL [facility] Monocytes Absolute Auto 0.7 0.1 - 1.2 X10*3/uL [facility] Eosinophils Absolute Auto 0.2 0.0 - 0.4 X10*3/uL [facility] Basophils Absolute Auto 0.0 0.0 - 0.2 X10*3/uL [facility] NRBC Abs Auto 0.000 0.0 - 0.012 X10*3/uL [facility] 04/01/2025 11:1 7 PM EST 04/01/2025 11:25 PM EST us Generic External Data Provider LAB BLOOD ORDERAB LES Final Result [facility] [address] [place] [phone] documented in this encounter Visit Diagnoses Not on filedocumented in this encounter Additional Health Concerns Assessment Noted Time PHQ-9 Depression Total Score: 0 10/05/19 23 3:44 PM EDT documented as of this encounter Care Teams Concrete Fence Builder Relationship Specialty Start Date End Date Jessica Spears FNP [address] [place] [phone] PCP - General Family Medicine 11/01/21 documented as of this encounter
--- OUTSIDE RECORDS SUMMARY | 2025-04-01 23:31 | XMS_ITS | Encounter Summary ---
Author Organization [employer] Address [address] [facility] [address] 7[address] [place] [address] Care Team Providers Care Construction Project Coordinator Name Role Phone Pierre Part, [place]OYMENT OFFICE CLERK Primary Care Provider [phone] Encounter Details Date Type Department Care Team (Late st Contact Info) Description 09/18/2024 Orders Only [facility] [address] [place], [place] [phone] Sydnie Sapp Social History Tobacco Use Types [...] with others, in a hotel, in a senior care, living outside on the street, on a [...] the past 12 months, has t he [employer], gas, oil or water [employer] threatened to shut off services in your [...] Description 04/28/2025 10:45 AM EST Office Visit [facility] [address] [place] [address] Jessica Spears FNP [address] [place] [address] documented as of this encounter Procedures Procedure [...] documented as of this encounter Care Teams Construction Project Coordinator Relationship Specialty Start Date End Date Jessica Spears FNP [address] [place] [phone] PCP - General Family Medicine 11/01/21 documented as of this encounter
[2025-04-01 23:33] LABS: Appearance Urine Clear; Glucose Urine UA Negative (Negative); PH 8.5 (5.0-9.0); Specific Gravity - Urine 1.020 (1.005-1.025)
[2025-04-01 23:40] LABS: Anion Gap 12 (12-20); Blood Urea Nitrogen 13 mg/dL (9-16); Calcium 9.0 mg/dL (8.4-10.2); Carbon Dioxide 24 mmol/L (22-29); Chloride 109 mmol/L (96-108); Creatinine Clr Calc Pharmacy 101.9; Estimated Glomerular Filt Rate > 60; Potassium 4.1 mmol/L (3.3-5.1); Sodium 141 mmol/L (135-145)
[2025-04-02 00:10] VITALS: BP 98/53; PULSE 63; RESP 16; TEMP 36.5; O2SAT 99
--- NOTE | 2025-04-02 00:16 | PC.NURSE ---
Patient sleeping in stretcher with partner at bedside, patient reports pain to mid back in 10/10. Plan of care ongoing
--- NOTE | 2025-04-02 00:58 | ED.GENADULT ---
HPI - General Adult General Chief complaint: General Medical Stated complaint: Back Pain Time Seen by Provider: 04/02/25 00:32 Source: patient Limitations: no limitations History of Present Illness ED Provider: Dominique Leach PA-C HPI narrative: 34-year-old female who is morbidly obese, presents with left-sided low back pain x3 days. Pain is radiating down to her buttock and posterior leg. Denies weakness of lower extremity, paresthesia, urinary retention or bowel incontinence. Patient performs a great deal of physical activity at work, no physical trauma sustained. Related Data Previous Rx's ?Medication ?Instructions ?Recorded oxycodone 5 mg tablet 5 mg PO Q8H PRN pain #14 tabs 02/13/25 penicillin V potassium 500 mg 500 mg PO TID 7 days #21 tabs 02/13/25 tablet ketorolac 10 mg tablet 10 mg PO Q6H PRN pain #20 tabs 04/02/25 methocarbamol 750 mg tablet 1,500 mg (2 x 750 mg) PO Q8H PRN 04/02/25 pain, moderate #24 tabs prednisone 20 mg tablet 40 mg (2 x 20 mg) PO DAILY #10 tabs 04/02/25 Allergies Allergy/AdvReac Type Severity Reaction Status Date / Time No Known Allergies Allergy Verified 04/01/25 23:08 Review of Systems Review of Systems: Yes all other systems are reviewed and are negative Constitutional: Constitutional: Denies fatigue and Denies fever(s) Cardiovascular: Cardiovascular: Denies chest pain and Denies dyspnea Respiratory: Respiratory: Denies dyspnea Gastrointestinal: Gastrointestinal: Denies abdominal pain Genitourinary: Genitourinary: Denies flank pain Musculoskeletal: Musculoskeletal: Reports back pain, Denies muscle weakness, Denies numbness, Reports radiating pain into limb and Denies tingling Neurologic: Denies numbness and Denies tingling Endocrine: Endocrine: Denies fatigue PMF Past Medical History Attestation statement: The following information was validated with the patient. Social History Social History Smoked in Last 30 Days: No Use of substances other than those prescribed or required for medical reasons: No Substance Use Type: Marijuana Advance Directives: No Advance Directives Information Provided: Yes Patient : No Physical Exam ED Vital Signs: Vital Signs - 24 hr 04/01/25 23:05 04/02/25 00:10 04/02/25 01:10 Temperature 97.9 F 97.7 F 97.7 F Pulse Rate 79 63 63 Respiratory Rate 16 16 16 Blood Pressure 109/59 L 98/53 L 98/53 L Pulse Oximetry 99 99 99 Oxygen Delivery Method Room Air Room Air Room Air BMI result Body Mass Index 43.1 Const Other: Alert Orientation/consciousness: patient oriented x3 Resp Effort & Inspection: normal respiratory effort Cardio Other: Normal peripheral perfusion Back/Spine/Pelvis Other: No midline tenderness, pain is paraspinous distribution on the left side Skin Other: Warm dry no rash Neuro General: patient oriented x3, gait normal, no focal motor deficits and CN's II-XI intact bilaterally Psych Other: Cooperative Medications Administered Discontinued Medications Generic Name Dose Route Start Last Admin Trade Name Freq PRN Reason Stop Dose Admin Ketorolac Tromethamine 15 mg 04/02/25 00:55 04/02/25 01:04 Ketorolac Tromethamine 15 Mg/Ml Vial IM 04/02/25 00:56 15 mg ONCE ONE Administration Methocarbamol 1,500 mg 04/02/25 00:55 04/02/25 01:05 Methocarbamol 750 Mg Tablet PO 04/02/25 00:56 1,500 mg ONCE ONE Administration Medical Decision Making Medical Decision Making [facility] Narrative: 34-year-old female who is morbidly obese, presents with left-sided low back pain x3 days. Pain is radiating down to her buttock and posterior leg. Denies weakness of lower extremity, paresthesia, urinary retention or bowel incontinence. Patient performs a great deal of physical activity at work, no physical trauma sustained. Problem: Obesity History: Per patient I have considered the following differential diagnoses: Lumbar strain, lumbar radiculopathy, cauda equina, compression fracture Plan: Patient here with a lumbar radiculopathy, there was no actual trauma, she is not require imaging. She has no red flag signs symptoms concerning for cord compression. We will treat accordingly. Screening labs including a urinalysis were obtained from triage, no acute abnormalities I have independently reviewed the following tests: Labs: No leukocytosis, not anemic, not , urine not infected no hematuria Differential Diagnosis Differential Diagnoses: The differential diagnosis associated with the presentation includes See [facility] Admission/Observation Consideration of admission/observation: Escalation of care including admission/observation considered Not applicable Lab Data [facility] Lab Attestation statement: I reviewed the patient's lab results. 04/01/25 23:17 04/01/25 23:17 Labs: Lab Results 04/01/25 04/01/25 Range/Units 23:17 23:21 WBC 7.2 (4.8-10.8) X10*3/uL RBC 4.07 L (4.20-5.50) X10*6/uL Hgb 11.9 L (12.0-16.0) g/dl Hct 36.1 L (37.0-47.0) % MCV 88.7 (80.0-98.0) fL MCH 29.2 (27.0-33.0) pg MCHC 33.0 (31.0-35.0) g/dl RDW 12.2 (11.0-16.0) % Plt Count 256 (160-400) X10*3/uL MPV 8.7 L (9.4-12.3) fL Immature Gran % (Auto) 0.4 (0.0-0.4) % Neut % (Auto) 47.5 (45-73) % Lymph % (Auto) 39.9 (20-40) % [place] % (Auto) 9.4 (2-11) % Eos % (Auto) 2.5 (0-4) % Baso % (Auto) 0.3 (0-2) % Lymph # (Auto) 2.9 (1.2-4.9) X10*3/uL [place] # (Auto) 0.7 (0.1-1.2) X10*3/uL Eos # (Auto) 0.2 (0.0-0.4) X10*3/uL Baso # (Auto) 0.0 (0.0-0.2) X10*3/uL Abs Immat Gran (auto) 0.03 (0.00-0.03) X10*3/uL Absolute Neuts (auto) 3.4 (2.0-8.3) x10*3/uL Absolute Nucleated RBC 0.000 (0.0-0.012) X10*3/uL Nucleated RBC % (auto) 0.0 (0.0-0.2) /100WBC Sodium 141 (135-145) mmol/L Potassium 4.1 (3.3-5.1) mmol/L Chloride 109 H (96-108) mmol/L Carbon Dioxide 24 (22-29) mmol/L Anion Gap 12 (12-20) BUN 13 (9-16) mg/dL Creatinine 0.86 (0.5-1.4) mg/dL Estim Creat Clear Calc 101.9 Estimated GFR > 60 Random Glucose 87 (60-115) mg/dL Calcium 9.0 (8.4-10.2) mg/dL Urine Color Yellow Urine Appearance Clear Urine pH 8.5 (5.0-9.0) Ur Specific [place] 1.020 (1.005-1.025) Urine Protein Negative (Neg-Trace) mg/dL Urine Glucose (UA) Negative (Negative) mg/dL Urine Ketones Negative (Negative) mg/dL Urine Blood Negative (Negative) Urine Nitrite Negative (Negative) Ur Leukocyte Esterase Negative (Negative) Urine Test NEGATIVE (NEGATIVE) Discharge Plan Discharge Clinical Impression: Acute left lumbar radiculopathy Patient Disposition: Home, Self-Care Instructions: Lumbar Radiculopathy (ED) Additional Instructions: All of your screening labs including a urinalysis were normal. You are being treated for sciatica, or lumbar radiculopathy. See home care instructions. Take the prednisone as directed, and the ketorolac as directed, these are vault anti-inflammatory, take them with food. Use the methocarbamol as needed for further pain, this is a muscle relaxant, it will cause drowsiness, do not drive or operate machinery while taking the medication. You need to follow up with primary care, you could benefit from physical therapy, they can help organize this process for you. Prescriptions: New ketorolac 10 mg tablet 10 mg PO Q6H PRN (Reason: pain) Qty: 20 0RF Rx Instructions: maximum total duration of 5 days from all oral, intranasal, or parenteral formulations. The patient received an intramuscular dose of Toradol here in the emergency room prednisone 20 mg tablet 40 mg PO DAILY Qty: 10 0RF methocarbamol 750 mg tablet 1,500 mg PO Q8H PRN (Reason: pain, moderate) Qty: 24 0RF No Action oxycodone 5 mg tablet 5 mg PO Q8H PRN (Reason: pain) Qty: 14 0RF Rx Instructions: Partial Fill upon patient request. penicillin V potassium 500 mg tablet 500 mg PO TID 7 Days Qty: 21 0RF Stand Alone Forms: Work/School Release Interventions: ED Discharge Assessment Last Done: 04/02/25 01:10 Discharge Date/Time: 04/02/25 01:10 Print Language: Arabic
[2025-04-02 01:10] VITALS: BP 98/53; PULSE 63; RESP 16; TEMP 36.5; O2SAT 99
== END 2025-04-02 01:10 | disposition home or self-care (01) ==
PROVIDERS: Emergency Provider Emergency Medicine
DX: M54.16 Radiculopathy, lumbar region (principal); E66.01 Morbid (severe) obesity due to excess calories
CPT/HCPCS: 36415; 80048; 81003; 81025; 85025; 96372; 99284; J1885